=== PATIENT | female | born 1970 | race Caucasian/White ===

== ENCOUNTER 2017-01-16 17:21 | Emergency (ER) | payer SELFPAY ==
[~2017-01-16] VITALS: Ht 157.5 cm; Wt 110.2 kg
[~2017-01-16 17:21] MED LIST: BCPILLS PO; PRED20TA PO
[2017-01-16 17:24] VITALS: TEMP 36.4; Ht 157.5 cm; Wt 110.2 kg
--- NOTE | 2017-01-16 18:39 | DIAGNOSTIC IMAGING REPORT ---
LEFT FOREARM 2 VIEWS CLINICAL HISTORY: Left forearm injury. Dog bite. FINDINGS: AP and lateral views of the left forearm are obtained. No prior studies are available for comparison at the time of dictation. The skeletal structures are well mineralized. There is no radiographic evidence of left forearm fracture. The elbow and wrist joints are grossly maintained. Soft tissue edema is seen in the distal forearm and wrist. Small foci of subcutaneous gas likely represent laceration. No radiodense foreign body is seen. IMPRESSION: Soft tissue edema/injury is noted in the distal forearm. No left forearm fracture is identified. Electronically signed by: Jaren Choi M.D. 01/16/2017 6:37 PM Dictated Date/Time: 01/16/2017 6:36 PM
--- NOTE | 2017-01-16 18:40 | DIAGNOSTIC IMAGING REPORT ---
LEFT WRIST 5 VIEWS CLINICAL HISTORY: Left wrist swelling and pain. Dog bit injury. FINDINGS: 5 views of left wrist are obtained. No prior studies are available for comparison at the time of dictation. The skeletal structures are well mineralized. No fracture is seen. The joint spaces of the wrist are preserved. Soft tissue edema is present around the wrist. No radiodense foreign body is identified. IMPRESSION: Soft tissue swelling with no radiographic evidence of left wrist fracture. Electronically signed by: Jaren Choi M.D. 01/16/2017 6:39 PM Dictated Date/Time: 01/16/2017 6:38 PM
[2017-01-16] MEDS ORDERED: AMOX875T PO (19:37)
--- NOTE | 2017-01-16 19:41 | EMERGENCY ROOM VISIT NOTE ---
ED Visit Note First contact with patient: 17:40 CHIEF COMPLAINT: Left forearm pain/lacerations s/p dog bite HISTORY OF PRESENT ILLNESS: This 46-year-old female patient presents to the emergency department approximately 3 hours after they sustained a dog bite to the left forearm. The patient states she grabbed at the leash, and the 9-month- old [place] turned and reared backwards at her. Patient states the dog did bite her in the left forearm. This is the patient's dog the patient reports several small lacerations on the medial and lateral aspects of the distal forearm. The patient reports that the animal's immunizations are up to date, and states he believes his rabies vaccine was performed last month. The patient complains of crushing 3/10 pain at the site of the injury. Pain is worse with movement. Tetanus status is up to date. REVIEW OF SYSTEMS: A 6 system review of systems was completed with positives and pertinent negatives listed in the HPI. ALLERGIES: None MEDICATIONS: None PMH: None PHYSICAL EXAM: Vital Signs reviewed, see Nurse's notes, vital signs stable. GENERAL: 46-year-old female, awake, alert, well appearing, no acute distress. Non toxic in appearance. MUSCULOSKELETAL: Examination of the left forearm reveals several puncture wounds , several of which are approximately 0.5 cm in length. There is moderate swelling on inspection of the distal forearm. Palpation of the wound reveals moderate tenderness. No significant crepitus or warmth noted. No joint space, tendon, or vascular involvement. Distal pulses intact. SKIN: No signs of infection. Lacerations as previously described. NEURO: No sensory or motor deficits noted over all dermatomes and myotomes tested. RADIOLOGY: X-ray left forearm FINDINGS: AP and lateral views of the left forearm are obtained. No prior studies are available for comparison at the time of dictation. The skeletal structures are well mineralized. There is no radiographic evidence of left forearm fracture. The elbow and wrist joints are grossly maintained. Soft tissue edema is seen in the distal forearm and wrist. Small foci of subcutaneous gas likely represent laceration. No radiodense foreign body is seen. IMPRESSION: Soft tissue edema/injury is noted in the distal forearm. No left forearm fracture is identified. X-Ray left wrist: FINDINGS: 5 views of left wrist are obtained. No prior studies are available for comparison at the time of dictation. The skeletal structures are well mineralized. No fracture is seen. The joint spaces of the wrist are preserved. Soft tissue edema is present around the wrist. No radiodense foreign body is identified. IMPRESSION: Soft tissue swelling with no radiographic evidence of left wrist fracture. EMERGENCY DEPARTMENT COURSE AND DECISION MAKING: I examined the patient. The patient presented with an isolated bite wound as described as above. By the history, there is minimal concern for rabies exposure. No signs of infection on examination. ER Treatment: Department of Health paperwork completed. Antibiotic prophylaxis is indicated. X-ray of the left forearm and wrist was ordered due to significant tenderness and swelling on exam. Results were reviewed by myself and radiologist and are as previously noted. The area was cleansed with Betadine and sterile saline and dressed with bacitracin and a bandage. The patient was provided with a home pack of Augmentin to start tonight. Discharge instructions reviewed. Discharged home in stable condition. DIAGNOSIS: Dog bite, multiple lacerations of left forearm DIFFERENTIAL DIAGNOSIS: Rabies exposure, cellulitis, wrist fracture, distal radius/ulna fracture, and others. DISCHARGE INSTRUCTIONS: You were prescribed Augmentin to be taken twice daily for 10 days. This is an antibiotic. All antibiotics have the potential to cause diarrhea. Stop this medication and contact a medical provider if you were to develop any significant adverse side effects including: wheezing, shortness of breath, passing out, vomiting, or a diffuse rash. Always take antibiotics as directed and COMPLETE the ENTIRE course regardless of the improvement of your symptoms. For pain control, you can use the following [id number] medicines (if >12 yo): - Regular strength (325mg/tab) Tylenol (acetaminophen) 2 tabs every 4-6 hours as needed. Do not exceed 9 tablets in a 24 hour period. Avoid taking more than 3 grams (3000 mg) of Tylenol per day. This includes any other sources of acetaminophen you may take on a regular basis. - Regular strength (200 mg/tab) Advil (ibuprofen) 2-3 tabs every 4-6 hours as needed. Do not exceed a dose of 3200 mg per day. Proper wound care is essential for adequate wound healing and infection prevention. You can shower and clean the wound with soap and water. Do not scour over the wound, pat dry with a towel. Do not submerse the wound (i.e. bathe or dish wash) until the wound has fully healed. You can use an antibiotic ointment with a dressing over the wound for the next 3-4 days. After this time, or as the wounds start to close, you may leave the wound dry and open to the air. Please follow-up with your primary care provider in 2-3 days for further evaluation of the wound. Return to the emergency department if you experience increased redness, drainage , pus, swelling, fever, nausea, vomiting, lethargy, or other associated symptoms. Current/Historical Medications Scheduled Amoxicillin & Pot Clavulanate (Augmentin 875-125 mg), 1 TAB PO BID Allergies Coded Allergies: No Known Allergies (Verified , 01/16/17) Vital Signs Date Time Temp Pulse Resp B/P (MAP) Pulse Ox O2 Delivery O2 Flow Rate FiO2 01/16/17 17:24 36.4 82 20 155/92 96 Room Air Departure Information Impression Primary Impression: Dog bite Additional Impression: Laceration of left forearm Dispostion Home / Self-Care Condition GOOD Prescriptions Amoxicillin & Pot Clavulanate (Augmentin 875-125 mg) 1 Tab Tab 1 TAB PO BID for 10 Days, #20 TAB Prov: Silvana Sullivan PA-C 01/16/17 Referrals Osvaldo Hamm M.D. (PCP) Patient Instructions ED Bite Dog, [facility] Additional Instructions You were prescribed Augmentin to be taken twice daily for 10 days. This is an antibiotic. All antibiotics have the potential to cause diarrhea. Stop this medication and contact a medical provider if you were to develop any significant adverse side effects including: wheezing, shortness of breath, passing out, vomiting, or a diffuse rash. Always take antibiotics as directed and COMPLETE the ENTIRE course regardless of the improvement of your symptoms. For pain control, you can use the following [id number] medicines (if >12 yo): - Regular strength (325mg/tab) Tylenol (acetaminophen) 2 tabs every 4-6 hours as needed. Do not exceed 9 tablets in a 24 hour period. Avoid taking more than 3 grams (3000 mg) of Tylenol per day. This includes any other sources of acetaminophen you may take on a regular basis. - Regular strength (200 mg/tab) Advil (ibuprofen) 2-3 tabs every 4-6 hours as needed. Do not exceed a dose of 3200 mg per day. Proper wound care is essential for adequate wound healing and infection prevention. You can shower and clean the wound with soap and water. Do not scour over the wound, pat dry with a towel. Do not submerse the wound (i.e. bathe or dish wash) until the wound has fully healed. You can use an antibiotic ointment with a dressing over the wound for the next 3-4 days. After this time, or as the wounds start to close, you may leave the wound dry and open to the air. Please follow-up with your primary care provider in 2-3 days for further evaluation of the wound. Return to the emergency department if you experience increased redness, drainage , pus, swelling, fever, nausea, vomiting, lethargy, or other associated symptoms. Problem Qualifiers Primary Impression: Dog bite Encounter type: initial encounter Qualified Codes: W54.0XXA - Bitten by dog , initial encounter Additional Impression: Laceration of left forearm Encounter type: initial encounter Qualified Codes: S51.812A - Laceration without foreign body of left forearm, initial encounter
[2017-01-16 20:04] VITALS: BP 156/96; PULSE 89; O2SAT 97
[2017-01-16] MEDS ORDERED: AMOXICILLIN/CLAVULANATE TAB 875 MG TAB PO SCH (21:00)
== END 2017-01-16 20:06 | disposition home or self-care (01) ==
LOC: C.EDB 17:21 → C.EDD 20:06
DX: S51.812A Laceration without foreign body of left forearm, initial encounter (principal); W54.0XXA Bitten by dog, initial encounter

== ENCOUNTER 2017-12-06 21:09 | Emergency (ER) | payer BC ==
[~2017-12-06] VITALS: Ht 157.5 cm; Wt 112.5 kg
[2017-12-06 21:18] VITALS: TEMP 36.6; Ht 157.5 cm; Wt 112.5 kg
[2017-12-06] MEDS ORDERED: LIDO/EPINEPHRINE/SOD BICARB 20 ML VIAL INFIL ONE (21:45)
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
[2017-12-06 23:06] VITALS: BP 144/84; PULSE 80; O2SAT 95
== END 2017-12-06 23:04 | disposition home or self-care (01) ==
LOC: C.EDB 21:09 → C.EDD 23:04
DX: S91.311A Laceration without foreign body, right foot, initial encounter (principal); S81.811A Laceration without foreign body, right lower leg, initial encounter; V18.0XXA Pedal cycle driver injured in noncollision transport accident in nontraffic accident, initial encounter; Y93.55 Activity, bike riding; Y99.8 Other external cause status